=== PATIENT | female | born 1955 | race Caucasian/White ===

== ENCOUNTER 2018-01-17 10:33 | Emergency (ER) | payer MEDICARE, OTHER, MEDICAID ==
[2018-01-17] MEDS: ONDANSETRON 4 MG INJ IV (11:22)
[2018-01-17] MEDS: HYDROmorphONE 1 MG/5 ML IV SYRINGE IV (11:22)
[2018-01-17] MEDS: SOD CHLORIDE 0.9% 1,000 ML IV (11:23)
[2018-01-17 11:35] LABS: ADD MAN DIFF? NO
[2018-01-17 11:39] LABS: BASOPHIL # 0.1 10^3/ul (0.0-0.1); BASOPHILS % 0.5 % (0.0-2.0); EOSINOPHILS # 0.3 10^3/ul (0.0-0.5); EOSINOPHILS % 3.3 % (0.0-7.0); HEMATOCRIT 32.8 % (37.0-47.0); HEMOGLOBIN 10.5 g/dl (12.0-16.0); LYMPHOCYTES # 2.2 10^3/ul (0.8-2.9); LYMPHOCYTES % 21.9 % (15.0-51.0); MEAN CORPUSCULAR HEMOGLOBIN 30.5 pg (29.0-33.0); MEAN CORPUSCULAR VOLUME 95.3 fl (82.0-101.0); MEAN PLATELET VOLUME 9.1 fl (7.4-10.4); MONOCYTE # 0.6 10^3/ul (0.3-0.9); MONOCYTES % 5.5 % (0.0-11.0); NEUTROPHIL # 6.9 10^3/ul (1.6-7.5); NEUTROPHILS % 68.3 % (39.0-77.0); PLATELET COUNT 224 10^3/UL (140-415); RED BLOOD COUNT 3.44 10^6/ul (4.20-5.40); RED CELL DISTRIBUTION WIDTH 13.3 % (11.5-14.5)
[2018-01-17 11:56] LABS: ALANINE AMINOTRANSFERASE 25 IU/L (13-69); ALBUMIN 3.6 g/dl (3.3-4.9); ALBUMIN/GLOBULIN RATIO 1.28; ALKALINE PHOSPHATASE 111 IU/L (42-121); ANION GAP 12 (8-16); ASPARTATE AMINO TRANSFERASE 22 IU/L (15-46); BILIRUBIN,INDIRECT 0.3 mg/dl (0-1.1); BILIRUBIN,TOTAL 0.3 mg/dl (0.2-1.3); BLOOD UREA NITROGEN 14 mg/dl (7-20); CALCIUM 8.6 mg/dl (8.4-10.2); CARBON DIOXIDE 29 mmol/L (21-31); CHLORIDE 104 mmol/L (97-110); CREATININE 0.61 mg/dl (0.44-1.00); GLUCOSE 94 mg/dl (70-220); LIPASE 93 U/L (23-300); POTASSIUM 4.1 mmol/L (3.5-5.1); SODIUM 141 mmol/L (135-144); TOTAL PROTEIN 6.4 g/dl (6.1-8.1)
[2018-01-17] MEDS: SOD CHLORIDE 0.9% 100 ML (12:56)
[2018-01-17] MEDS: IOHEXOL 300MG/ML 150 ML BTL (12:56)
== END 2018-01-17 14:46 | disposition home or self-care (01) ==
LOC: E/R 10:33
DX: R10.11 Right upper quadrant pain (principal); R10.13 Epigastric pain; I25.810 Atherosclerosis of coronary artery bypass graft(s) without angina pectoris; Z85.028 Personal history of other malignant neoplasm of stomach
CPT/HCPCS: 70450; 74177; 80053; 83690; 85025; 96374; 96375; 99285-25